=== PATIENT | female | born 1985 | race Caucasian/White ===

== ENCOUNTER 2018-09-19 17:00 | Emergency (ER) | payer SELFPAY | END 2018-09-19 17:58 | LOC: ED 17:30 | DX: Z53.21 Procedure and treatment not carried out due to patient leaving prior to being seen by health care provider (principal) ==

== ENCOUNTER 2018-10-19 21:37 | Emergency (ER) | payer SELFPAY ==
[~2018-10-19] VITALS: Ht 170.2 cm; Wt 81.5 kg
[2018-10-19 21:43] VITALS: BP 112/74
== END 2018-10-19 22:24 | disposition home or self-care (01) ==
LOC: ED 22:00
DX: H65.02 Acute serous otitis media, left ear (principal); J00 Acute nasopharyngitis [common cold]; F17.210 Nicotine dependence, cigarettes, uncomplicated
CPT/HCPCS: 99283